=== PATIENT | female | born 1945 | race Two or more races ===

== ENCOUNTER 2021-05-31 11:34 | Outpatient (CLI) | payer MEDICARE, OTHER | END 2021-05-31 23:59 | disposition home or self-care (01) | LOC: LAB 11:34 | PROVIDERS: ATTEND Specialist | DX: Z01.812 Encounter for preprocedural laboratory examination (principal); Z20.822 Contact with and (suspected) exposure to COVID-19 | CPT/HCPCS: C9803; U0003 ==